=== PATIENT | female | born 1960 | race Caucasian/White ===

== ENCOUNTER → 2016-08-25 | Outpatient (CLI) | payer MEDICARE, MEDICAID ==
[~2016-08-25] MED LIST: AMOX500C2 PO; CPR500T PO; LEVO100V IV; LEVO88TA54 PO; NYST1000 PO; ONDAN4ODT PO; ROSU20TA PO; SIMV40TA4 PO; SULF-222 PO; TRAM50TA2 PO
--- NOTE | 2016-08-25 13:44 | Diagnostic Imaging Report ---
Bilateral screening mammogram. The current study was also evaluated with a Computer Aided Detection (CAD) system. INDICATION: Screening. No current complaints stated on the questionnaire. COMPARISON: 08/09/15 FINDINGS: The breasts are composed of heterogeneously dense parenchyma which may decrease mammographic sensitivity. Numerous bilateral calcifications are seen. Allowing for technique and positional differences, no suspicious change is seen. IMPRESSION: Dense breasts with no definite change. ACR BI-RADS Category 2: Benign findings. Result letter will be mailed to the patient. Note: At least 10% of breast cancer is not imaged by mammography. Dictated by: Dictated on workstation # [id number]
== END | disposition home or self-care (01) ==
LOC: RAD 10:27
PROVIDERS: ATTEND Family Medicine
DX: Z12.31 Encounter for screening mammogram for malignant neoplasm of breast (principal)
CPT/HCPCS: 77067

== ENCOUNTER → 2017-05-27 | Outpatient (CLI) | payer MEDICAID, MEDICARE ==
[2017-05-27 06:52] LABS: HEMOGLOBIN 13.9 G/DL (11.5-16.0); MEAN PLATELET VOLUME 8.8 FL (7.4-10.4); RED BLOOD COUNT 4.48 10^6/uL (4.35-5.85); WHITE BLOOD COUNT 8.9 10^3/uL (4.3-11.0)
[2017-05-27 07:19] LABS: ALANINE AMINOTRANSFERASE 51 U/L (0-55); ALBUMIN 4.4 GM/DL (3.2-4.5); ALKALINE PHOSPHATASE 129 U/L (40-136); AMYLASE 67 U/L (25-125); BILIRUBIN,TOTAL 0.5 MG/DL (0.1-1.0); BUN/CREATININE RATIO 19; CALCIUM 9.4 MG/DL (8.5-10.1); CARBON DIOXIDE 29 MMOL/L (21-32); CHLORIDE 104 MMOL/L (98-107); GFR ESTIMATED > 60; GLUCOSE 94 MG/DL (70-105); LIPASE 13 U/L (8-78); POTASSIUM 3.9 MMOL/L (3.6-5.0); SODIUM 143 MMOL/L (135-145); TOTAL PROTEIN 7.5 GM/DL (6.4-8.2)
--- NOTE | 2017-05-27 08:32 | Diagnostic Imaging Report ---
PROCEDURE: US Gallbladder. TECHNIQUE: Multiple real-time grayscale images were obtained over the right upper quadrant in various projections. INDICATION: Right upper quadrant pain The liver parenchyma is homogeneous with normal echotexture. The gallbladder is clear with no stones or wall thickening. The common duct is not dilated. Pancreas appears normal. Right kidney appeared normal. There is no ascites. IMPRESSION: Negative gallbladder sonogram. Dictated by: Dictated on workstation # [id number]
== END ==
LOC: RAD 06:39
PROVIDERS: ATTEND Family Medicine
DX: R10.11 Right upper quadrant pain (principal)
CPT/HCPCS: 36415; 76705; 80053; 82150; 83690; 85027

== ENCOUNTER → 2017-09-04 | Outpatient (CLI) | payer MEDICARE ==
--- NOTE | 2017-09-04 13:06 | Diagnostic Imaging Report ---
INDICATION: Routine screening. COMPARISON: Comparison is made with prior mammograms from 08/25/2016 and 08/09/2015. TECHNIQUE: 2D and 3D bilateral screening mammography was performed with computer-aided detection (CAD) system. FINDINGS: Both breasts remain heterogeneously dense, limiting the sensitivity of mammography. There are innumerable microcalcifications throughout both breasts, significantly limiting evaluation. There is a circumscribed nodule in the right breast, slightly lateral to the nipple line on the CC view, 7 cm from the nipple. This measures 1 cm. Further evaluation with ultrasound is recommended. This may represent a cyst. The left breast appears stable. No spiculated mass is seen. The axillae are unremarkable. IMPRESSION: Circumscribed density in the right breast, as described, slightly lateral to the nipple line at posterior depth. This most likely represents a cyst. Further evaluation with ultrasound is recommended. ACR BI-RADS Category 0: Incomplete. (Needs additional imaging evaluation). Result letter will be mailed to the patient. Note: At least 10% of breast cancer is not imaged by mammography. Dictated by: Dictated on workstation # [id number]
== END ==
LOC: RAD 10:28
PROVIDERS: ATTEND Family Medicine
DX: Z12.31 Encounter for screening mammogram for malignant neoplasm of breast (principal)
CPT/HCPCS: 77067

== ENCOUNTER → 2017-09-10 | Outpatient (CLI) | payer MEDICARE ==
--- NOTE | 2017-09-11 08:33 | Diagnostic Imaging Report ---
Indication: Right breast density on recent screening mammogram. This study is performed for further evaluation. Correlation is made with screening mammogram from 09/04/2017. Sonographic interrogation of the upper and outer aspect of the right breast was performed. There are several cysts in the right breast 10 o'clock location. A small cyst 1 cm from the nipple measures approximately 5 mm x 5 mm. Small cyst at the 9:30 location 4 cm from the nipple is noted approximately 5 mm in diameter. At the 10 o'clock location, 6 cm from the nipple, there is a 9 mm x 6 mm x 6 mm simple cyst, corresponding to the mammographic density. There is posterior acoustic enhancement. No internal vascularity is seen. No solid lesion is detected. Impression: BI-RADS 2 Multiple right breast cysts, largest is 10 o'clock location, 6 cm from the nipple, corresponding to the mammographic density. The patient may return to routine annual screening mammography. ACR BI-RADS Category 2: Benign findings. Result letter will be mailed to the patient. Note: At least 10% of breast cancer is not imaged by mammography. Dictated by: Dictated on workstation # [id number]
== END ==
LOC: RAD 13:52
PROVIDERS: ATTEND Family Medicine
DX: N60.01 Solitary cyst of right breast (principal); N63.11 Unspecified lump in the right breast, upper outer quadrant

== ENCOUNTER → 2019-09-09 | Outpatient (CLI) | payer MEDICARE ==
[~2019-09-09] MED LIST changes: -ROSU20TA PO; +ROSU20TA2 PO
--- NOTE | 2019-09-09 11:55 | Diagnostic Imaging Report ---
EXAMINATION: Digital mammogram INDICATION: Bilateral screening This study was compared to the prior exam of 09/06/2018, 09/04/2017 and 08/25/2016. At this time there are no current complaints. The fibroglandular tissue in both breasts is heterogeneously dense. This does limit the sensitivity of this exam. As noted on the previous exam there are innumerable microcalcifications scattered throughout both breasts. These seem similar to the prior exam. Also, the lobulated density along the posterior lateral aspect of the right breast seen previously is again visualized and no different. This has been shown to represent a cyst by ultrasound. There is no primary or secondary sign of malignancy noted. IMPRESSION: There is no evidence of malignancy. ACR BI-RADS Category 1: Negative. Result letter will be mailed to the patient. Note: At least 10% of breast cancer is not imaged by mammography. Dictated by: Dictated on workstation # [id number]
== END ==
LOC: RAD 08:23
PROVIDERS: ATTEND Family Medicine
DX: Z12.31 Encounter for screening mammogram for malignant neoplasm of breast (principal)
CPT/HCPCS: 77063; 77067

== ENCOUNTER → 2020-07-27 | Outpatient (CLI) | payer MEDICARE ==
--- NOTE | 2020-07-27 15:12 | Diagnostic Imaging Report ---
INDICATION: Hand pain, trauma COMPARISON: None available TECHNIQUE: 3 radiographs of the left hand dated 07/27/2020 FINDINGS: No acute fracture or dislocation. No destructive osseous process. Carpal alignment is well-maintained. No suspicious radiopaque foreign body. Minimal joint space narrowing and osteophyte formation, including involving scattered interphalangeal joints. IMPRESSION: No acute osseous abnormality with mild scattered degenerative changes. Dictated by: Dictated on workstation # [id number]
== END ==
LOC: RAD 11:50
PROVIDERS: ATTEND Family Medicine
DX: M19.042 Primary osteoarthritis, left hand (principal)
CPT/HCPCS: 73130

== ENCOUNTER → 2020-09-11 | Outpatient (CLI) | payer MEDICARE ==
--- NOTE | 2020-09-11 14:01 | Diagnostic Imaging Report ---
INDICATION: Routine screening. COMPARISON: 09/09/2019 and 09/06/2018. TECHNIQUE: 2D and 3D bilateral screening mammography was performed with CAD. FINDINGS: Both breasts are heterogeneously dense, limiting the sensitivity of mammography. Innumerable microcalcifications bilaterally are again noted and appear similar to the prior exam. The circumscribed density in the outer right breast at mid depth is stable. No new mass or malignant appearing microcalcifications are seen. The axillae are unremarkable. IMPRESSION: No mammographic features suspicious for malignancy are identified. ACR BI-RADS Category 2: Benign findings. Result letter will be mailed to the patient. Note: At least 10% of breast cancer is not imaged by mammography. Dictated by: Dictated on workstation # [id number]
== END ==
LOC: RAD 11:15
PROVIDERS: ATTEND Family Medicine
DX: Z12.31 Encounter for screening mammogram for malignant neoplasm of breast (principal)
CPT/HCPCS: 77063; 77067

== ENCOUNTER → 2021-09-12 | Outpatient (CLI) | payer MEDICARE | LOC: CARD 09:00 | PROVIDERS: ATTEND Internal Medicine Cardiovascular Disease | DX: I10 Essential (primary) hypertension (principal); I25.10 Atherosclerotic heart disease of native coronary artery without angina pectoris | CPT/HCPCS: 93306 ==

== ENCOUNTER → 2021-09-12 | Outpatient (CLI) | payer MEDICARE ==
--- NOTE | 2021-09-12 10:46 | Diagnostic Imaging Report ---
INDICATION: Routine screening. Comparison is made with prior mammogram 09/11/2020 and 09/09/2019. 2-D and 3-D bilateral screening mammography was performed with CAD. CAD is utilized. The current study was also evaluated with a Computer Aided Detection (CAD) system. Both breasts are heterogeneously dense, limiting the sensitivity of mammography. The overall parenchymal pattern appears stable. There are innumerable microcalcifications throughout both breasts which does limit the sensitivity. No discrete mass is identified. Axillae are unremarkable. IMPRESSION: BI-RADS Category 2 No mammographic features suspicious for malignancy are identified. ACR BI-RADS Category 2: Benign findings. Result letter will be mailed to the patient. Note: At least 10% of breast cancer is not imaged by mammography. Dictated by: Dictated on workstation # [id number]
== END ==
LOC: RAD 07:39
PROVIDERS: ATTEND Family Medicine
DX: Z12.31 Encounter for screening mammogram for malignant neoplasm of breast (principal)
CPT/HCPCS: 77063; 77067

== ENCOUNTER → 2022-01-01 | Outpatient (CLI) | payer MEDICARE ==
[2022-01-01] MEDS: CATHETER FLUSH 10 ML SYR IVP PRN (07:52)
[2022-01-01 09:28] VITALS: BP 158/83
--- NOTE | 2022-01-01 11:52 | Cardiology Stress Test Report ---
Stress Test Report Date of Procedure/Referring: Date of Procedure: Jan 01, 2022 PCP Jayson Williamson DO Admitting Physician Admitting Physician: Attending Physician: Luana Ruggiero Indications: HTN Baseline Heart Rate: 76 Baseline Blood Pressure: Blood Pressure Systolic: 158 Blood Pressure Diastolic: 83 Vital Signs Date Time Temp Pulse Resp B/P (MAP) Pulse Ox O2 Delivery O2 Flow Rate FiO2 01/01/22 09:28 74 16 158/83 (108) 98 Room Air Baseline Vital Signs Vital Signs Date Time Temp Pulse Resp B/P (MAP) Pulse Ox O2 Delivery O2 Flow Rate FiO2 01/01/22 09:28 74 16 158/83 (108) 98 Room Air Baseline EKG: Baseline EKG: NSR Summary: After explaining the procedure and details to the patient, she signed the consent and was brought to the stress nuclear laboratory. Patient exercised on standard Jose Juan protocol, EKG, heart rate and blood pressure were monitored continuously, resting and stress doses of radio tracer were injected, imaging was acquired and reviewed in the short axis, horizontal long axis and vertical long axis views Patient was able to exercise for a total of 4 minutes on Jose Juan protocol, METs 5.4 Maximum heart rate 143 Maximum blood pressure 243/68 Stress EKG, Minimal nondiagnostic changes Recovery EKG, Return to baseline TID: 0.95 SSS: 2 SDS: 2 EF: 58 Conclusion: 1. Fair exercise tolerance for a total of 4 minutes on standard Jose Juan protocol, 5.4 METS achieving 89% of maximal expected heart rate 2. Appropriate heart rate response to exercise with occasional PVCs at peak stress level resolved in recovery 3. Severe hypertensive response to exercise with peak blood pressure 243/68 returned to baseline during recovery 4. No significant ischemia or infarction on SPECT images 5. Normal left ventricular size, ejection fraction 58% Copy Copies To 1: JAYSON WILLIAMSON BASHAR J MD Jan 01, 2022 11:52
== END ==
LOC: CARD 07:33
PROVIDERS: ATTEND Physician Assistant
DX: I10 Essential (primary) hypertension (principal); I25.10 Atherosclerotic heart disease of native coronary artery without angina pectoris
CPT/HCPCS: 78452; 93017; A9502

== ENCOUNTER → 2022-10-09 | Outpatient (CLI) | payer MEDICARE ==
--- NOTE | 2022-10-10 13:12 | Diagnostic Imaging Report ---
Bilateral digital 2-D and 3-D mamm screening with CAD. The current study was also evaluated with a Computer Aided Detection (CAD) system. COMPARISON: 09/04, 09/03 and 08/2019 FINDINGS: density 3 Innumerable skin moles over the bilateral breast persist. No breast mass, spiculated lesion or architectural distortion is found while there are some dispersed punctate stable benign calcifications bilaterally, more localized calcification aggregates posterior to the right nipple in the central portion of the right breast have developed. These have similar morphology and density to the remaining dispersed stable benign-appearing calcifications however given their aggregation in the change at this site further workup with magnification views as well as 90 degree lateral medial film recommended. There is no mass or spiculated lesion. IMPRESSION: Increased aggregate indeterminate central depth right breast microcalcifications diagnostic views recommended. BI-RADS Category 0 diagnostic views of the right breast recommended as discussed ACR BI-RADS Category 0: Incomplete. (Needs additional imaging evaluation). Result letter will be mailed to the patient. Note: At least 10% of breast cancer is not imaged by mammography. Dictated by: Dictated on workstation # [id number]
== END ==
LOC: RAD 11:14
PROVIDERS: ATTEND Family Medicine
DX: Z12.31 Encounter for screening mammogram for malignant neoplasm of breast (principal); R92.0 Mammographic microcalcification found on diagnostic imaging of breast
CPT/HCPCS: 77063; 77067

== ENCOUNTER → 2022-10-23 | Outpatient (CLI) | payer MEDICARE ==
--- NOTE | 2022-10-23 13:23 | Diagnostic Imaging Report ---
Indication: Right breast calcifications. Patient presents for additional views. Correlation is made with screening study from 10/09/2022. 2-D and 3-D unilateral right diagnostic mammography was performed. This included magnification CC and ML views as well as conventional 90 degree lateral views. There is a cluster of indeterminate microcalcifications in the central right breast just lateral to the nipple line on the CC view. Several of these do show some pleomorphism. No soft tissue mass is identified. A rounded density right breast is stable. IMPRESSION: BI-RADS Category 4 Indeterminate cluster microcalcifications in the slightly outer right breast mid depth. Tissue sampling would be recommended. These would be amenable to ultrasound-guided stereotactic biopsy. ACR BI-RADS Category 4: Suspicious abnormality. Result letter will be mailed to the patient. Note: At least 10% of breast cancer is not imaged by mammography. Dictated by: Dictated on workstation # [id number]
== END ==
LOC: RAD 09:45
PROVIDERS: ATTEND Family Medicine
DX: R92.1 Mammographic calcification found on diagnostic imaging of breast (principal)
CPT/HCPCS: 77065; G0279

== ENCOUNTER → 2022-10-31 | Outpatient (CLI) | payer MEDICARE ==
[~2022-10-31] VITALS: Ht 154.9 cm; Wt 79.5 kg
[~2022-10-31] MED LIST changes: +LIDOCAINE 1% INJ 10 ML VIAL INJ ONE; +LIDOCAINE 1% INJ 10 ML VIAL ONE
--- NOTE | 2022-10-31 11:34 | Diagnostic Imaging Report ---
INDICATION: Right breast calcifications. The patient presents for stereotactic biopsy. The patient was brought to the stereotactic suite and placed in a chair in the sitting upright position. The right breast was positioned lateral medial. Stereotactic imaging and tomographic imaging of the right breast was performed. The cluster of microcalcifications in the central right breast were stereotactically targeted. All images were viewed on a dedicated workstation. The lateral right breast was then prepped and draped in the usual sterile fashion. A small amount of 1% lidocaine was utilized for local anesthesia. An 8-gauge vacuum-assisted needle was advanced from a lateral medial approach and placed per stereotactic coordinates. A total of 4 core biopsies were obtained with the vacuum-assisted device. Specimen radiograph was obtained demonstrating numerous calcifications within sample 2, 3 and 4. A marker clip was deployed. Needle was removed and hemostasis was obtained using manual compression. Postprocedure 2-D mammogram was then obtained on dedicated mammographic equipment in the CC and ML projections. Postprocedure images demonstrate a marker clip in the central right breast. IMPRESSION: Successful stereotactic biopsy right breast calcifications utilizing the 8-gauge vacuum-assisted device. Pathology results are currently pending. Dictated by: Dictated on workstation # [id number]
== END ==
LOC: RAD 08:56
PROVIDERS: ATTEND Family Medicine
DX: R92.1 Mammographic calcification found on diagnostic imaging of breast (principal)
CPT/HCPCS: 19081; A4648